=== PATIENT | male | born 1990 | race Caucasian/White ===

== ENCOUNTER → 2016-12-17 | Outpatient (CLI) | payer BC | END | disposition home or self-care (01) | LOC: MW.CHIM 09:00 | CPT/HCPCS: 93270 ==

== ENCOUNTER → 2017-02-05 | Outpatient (CLI) | payer BC | END | disposition home or self-care (01) | LOC: MW.NPFI 18:09 | PROVIDERS: ATTEND Nurse Practitioner | DX: D75.1 Secondary polycythemia (principal) | CPT/HCPCS: 85025 ==

== ENCOUNTER 2017-04-19 22:51 | Observation (INO) | payer BC, OTHER ==
[2017-04-19] MEDS ORDERED: Sodium Chloride 0.9% 1,000 ML IV ONE (23:21)
--- NOTE | 2017-04-19 23:23 | EDM.PDOC ---
ED HPI GENERAL MEDICAL PROBLEM - General Chief Complaint: Abdominal Pain Stated Complaint: LOWER ABDOMINAL PAIN Time Seen by Provider: 04/19/17 23:19 - History of Present Illness INITIAL COMMENTS - FREE TEXT/NARRATIVE: HISTORY AND PHYSICAL: History of present illness: Patient is 26-year-old male with her abdominal pain 1-2 days this is right side is poorly localizesassociated vomiting diarrhea urinary symptoms fever chills or other complaints he denies trauma Review of systems: As per history of present illness and below otherwise all systems reviewed and negative. Past medical history: As per history of present illness and as reviewed below otherwise noncontributory. Surgical history: As per history of present illness and as reviewed below otherwise noncontributory. Social history: No reported history of drug or alcohol abuse. Family history: As per history of present illness and as reviewed below otherwise noncontributory. Physical exam: HEENT: Atraumatic, normocephalic, pupils reactive, negative for conjunctival pallor or scleral icterus, mucous membranes moist, throat clear, neck supple, nontender, trachea midline. Lungs: Clear to auscultation, breath sounds equal bilaterally, chest nontender. Heart: S1S2, regular, negative for clicks, rubs, or JVD. Abdomen: Soft, nondistended, mild right-sided tenderness nonlocalized no rebound no guarding. Negative for masses or hepatosplenomegaly. Negative for costovertebral tenderness. Pelvis: Stable nontender. Genitourinary: Deferred. Rectal: Deferred. Extremities: Atraumatic, negative for cords or calf pain. Neurovascular unremarkable. Neuro: Awake, alert, oriented. Cranial nerves II through XII unremarkable. Cerebellum unremarkable. Motor and sensory unremarkable throughout. Exam nonfocal. Diagnostics: CBC CMP lipase UA CT of abdomen/pelvis Therapeutics: Normal saline 1 L bolus Impression: #1 abdominal pain Definitive disposition and diagnosis as appropriate pending reevaluation and review of above. abdomen Pain Score (Numeric/FACES): 6 - Related Data Allergies Allergy/AdvReac Type Severity Reaction Status Date / Time No Known Allergies Allergy Verified 04/19/17 22:55 Home Meds: Home Meds . [No Known Home Meds] 04/19/17 [History] Past Medical History - Past Health History Medical/Surgical History: Denies Medical/Surgical History HEENT History: Reports: None Musculoskeletal History: Reports: Back Pain, Chronic Psychiatric History: Reports: ADD - Infectious Disease History Infectious Disease History: Reports: Chicken Pox Other Infectious Disease History: childhood - Past Surgical History HEENT Surgical History: Reports: Tonsillectomy Social & Family History - Family History Family Medical History: Noncontributory Cardiac: Reports: Hypertension, Other (See Below) Other Cardiac Family History: heart disease Neurological: Reports: CVA Oncologic: Reports: Skin, Other (See Below) Other Oncologic Family History: sqaumous cell carcinoma - Tobacco Use Smoking Status *Q: Never Smoker Years of Tobacco use: 5 Packs/Tins Daily: 1 - Caffeine Use Caffeine Use: Reports: Coffee, Energy Drinks Other Caffeine Use: 1 daily - Recreational Drug Use Recreational Drug Use: No Drug Use in Last 12 Months: No ED ROS GENERAL - Review of Systems Review Of Systems: ROS reveals no pertinent complaints other than HPI. ED EXAM, GENERAL - Physical Exam Exam: See Below (See dictation) Course - Vital Signs Last Recorded V/S: Last Vital Signs Temp 36.7 C 04/20/17 04:00 Pulse 67 04/20/17 04:00 Resp 14 04/20/17 04:00 BP 110/54 L 04/20/17 04:00 Pulse Ox 97 04/20/17 04:00 - Orders/Labs/Meds Orders: Active Orders 24 hr Category Date Time Status Abdomen Pelvis wo Cont [CT] Stat Exams 04/19/17 23:21 Taken Piperacillin/Tazobactam [Piperacil-Tazobact] 3.375 gm Med 04/20/17 01:15 Active Sodium Chloride 0.9% [Normal Saline] 50 ml IV Q8H Medication Orders Hydromorphone HCl (Dilaudid) 0.5 mg IVPUSH Q1H PRN PRN Reason: Pain Last Admin: 04/20/17 04:28 Dose: 0.5 mg Admin: 04/20/17 02:42 Dose: 0.5 mg Piperacillin Sod/Tazobactam (Sod 3.375 gm/ Sodium Chloride) 50 mls @ 100 mls/ hr IV Q8H [facility] Last Admin: 04/20/17 01:27 Dose: 100 mls/hr Lactated Ringer's (Ringers, Lactated) 1,000 mls @ 125 mls/hr IV ASDIRECTED [facility] Last Admin: 04/20/17 02:35 Dose: 125 mls/hr Labs: Laboratory Tests 04/19/17 04/19/17 04/19/17 Range/Units 23:25 23:49 23:49 WBC 10.66 (4.0-11.0) K/uL RBC 4.96 (4.50-5.90) M/uL Hgb 15.4 (13.0-17.0) g/dL Hct 44.1 (38.0-50.0) % MCV 88.9 (80.0-98.0) fL MCH 31.0 (27.0-32.0) pg MCHC 34.9 (31.0-37.0) g/dL RDW Std Deviation 42.0 (28.0-62.0) fl RDW Coeff of Vikash 13 (11.0-15.0) % Plt Count 161 (150-400) K/uL MPV 10.50 (7.40-12.00) fL Neut % (Auto) 62.5 (48.0-80.0) % Lymph % (Auto) 26.8 (16.0-40.0) % [place] % (Auto) 8.1 (0.0-15.0) % Eos % (Auto) 2.2 (0.0-7.0) % Baso % (Auto) 0.4 (0.0-1.5) % Neut # (Auto) 6.7 H (1.4-5.7) K/uL Lymph # (Auto) 2.9 H (0.6-2.4) K/uL [place] # (Auto) 0.9 H (0.0-0.8) K/uL Eos # (Auto) 0.2 (0.0-0.7) K/uL Baso # (Auto) 0.0 (0.0-0.1) K/uL Nucleated RBC % 0.0 /100WBC Nucleated RBCs # 0 K/uL Sodium 142 (136-146) mmol/L Potassium 3.6 (3.5-5.1) mmol/L Chloride 109 (98-110) mmol/L Carbon Dioxide 21 (21-31) mmol/L BUN 22 (6.0-23.0) mg/dL Creatinine 1.0 (0.6-1.5) mg/dL Est Cr Clr Drug Dosing 133.79 mL/min Estimated GFR (MDRD) > 60.0 ml/min Glucose 105 (60-110) mg/dL Calcium 9.4 (8.8-10.8) mg/dL Total Bilirubin 0.8 (0.1-1.5) mg/dL AST 24 (5-40) IU/L ALT 33 (8-54) IU/L Alkaline Phosphatase 99 (40-150) Total Protein 7.3 (6.0-8.0) g/dL Albumin 4.4 (3.5-5.0) g/dL Globulin 2.9 (2.0-3.5) g/dL Albumin/Globulin Ratio 1.5 (1.3-2.8) Lipase 22 (7-80) U/L Urine Color YELLOW Urine Appearance CLEAR Urine pH 5.5 (5.0-8.0) Ur Specific [place] >= 1.030 (1.001-1.035) Urine Protein NEGATIVE (NEGATIVE) mg/dL Urine Glucose (UA) NEGATIVE (NEGATIVE) mg/dL Urine Ketones NEGATIVE (NEGATIVE) mg/dL Urine Occult Blood SMALL H (NEGATIVE) Urine Nitrite NEGATIVE (NEGATIVE) Urine Bilirubin NEGATIVE (NEGATIVE) Urine Urobilinogen 0.2 (<2.0) EU/dL Ur Leukocyte Esterase NEGATIVE (NEGATIVE) Urine RBC 0-3 (0-2/HPF) Urine WBC 0-1 (0-5/HPF) Ur Epithelial Cells RARE (NONE-FEW) Urine Bacteria FEW (NEGATIVE) Urine Mucus LIGHT (NONE-MOD) Meds: Medications Generic Name Dose Route Start Last Admin Trade Name Freq PRN Reason Stop Dose Admin Hydromorphone HCl 0.5 mg 04/20/17 01:36 04/20/17 04:28 Dilaudid IVPUSH 0.5 mg Q1H PRN Administration Pain Piperacillin Sod/Tazobactam 50 mls @ 100 mls/hr 04/20/17 01:15 04/20/17 01:27 Sod 3.375 gm/ Sodium Chloride IV 100 mls/hr Q8H [facility] Administration Lactated Ringer's 1,000 mls @ 125 mls/hr 04/20/17 01:45 04/20/17 02:35 Ringers, Lactated IV 125 mls/hr ASDIRECTED [facility] Administration Discontinued Medications Generic Name Dose Route Start Last Admin Trade Name Freq PRN Reason Stop Dose Admin Hydromorphone HCl 1 mg 04/20/17 01:09 04/20/17 01:27 Dilaudid IVPUSH 04/20/17 01:10 1 mg ONETIME ONE Administration Sodium Chloride 1,000 mls @ 999 mls/hr 04/19/17 23:21 04/19/17 23:56 Normal Saline IV 04/20/17 00:21 999 mls/hr STAT ONE Administration Sodium Chloride 1,000 mls @ 999 mls/hr 04/20/17 01:09 04/20/17 01:27 Normal Saline IV 04/20/17 02:09 999 mls/hr STAT ONE Administration Ketorolac Tromethamine 15 mg 04/19/17 23:59 04/20/17 00:03 Toradol IVPUSH 04/20/17 00:00 15 mg NOW STA Administration Departure - Departure Time of Disposition: 23:55 Disposition: Admitted As Inpatient 66 Condition: Good Clinical Impression: Abdominal pain - Discharge Information - My Orders Last 24 Hours: My Active Orders 04/19/17 23:21 Abdomen Pelvis wo Cont [CT] Stat 04/20/17 01:15 Piperacillin/Tazobactam [Piperacil-Tazobact] 3.375 gm Sodium Chloride 0.9% [ Normal Saline] 50 ml IV Q8H - Assessment/Plan Last 24 Hours: My Active Orders 04/19/17 23:21 Abdomen Pelvis wo Cont [CT] Stat 04/20/17 01:15 Piperacillin/Tazobactam [Piperacil-Tazobact] 3.375 gm Sodium Chloride 0.9% [ Normal Saline] 50 ml IV Q8H
[2017-04-19] MEDS ORDERED: Ketorolac 15 MG/ML SDV IVPUSH STA (23:59)
[2017-04-20 00:59] LABS: CHLORIDE,CL 109 mmol/L (98-110); SODIUM,NA 142 mmol/L (136-146)
[2017-04-20] MEDS ORDERED: HYDROmorphone 2 MG/ML Syringe IVPUSH ONE (01:09)
[2017-04-20] MEDS ORDERED: Sodium Chloride 0.9% 1,000 ML IV ONE (01:09)
[2017-04-20] MEDS: Piperacillin/Tazobactam 3.375 GM in Sodium Chloride 0.9% 50 ML IV SCH ×2 (01:27→10:11)
[2017-04-20] MEDS: Lactated Ringers 1,000 ML IV SCH ×2 (02:35→16:21)
[2017-04-20] MEDS: HYDROmorphone 1 MG/ML Syringe IVPUSH PRN ×4 (02:42→16:17)
--- NOTE | 2017-04-20 07:46 | PCM.HP ---
H&P History of Present Illness - General Date of Service: 04/20/17 Admit Problem/Dx: Admission Diagnosis/Problem Admission Diagnosis/Problem Appendicitis Source of Information: Patient History Limitations: Reports: No Limitations - History of Present Illness Initial Comments - Free Text/Narative: Patient is a 26 yo male who developed abdominal discomfort 2 days ago. he thought it was hunger pains, but by the end of the day he had no appetite. Yesterday the pain migrated to his RLQ and he had associated symptoms of nausea. He denies fevers, chills, vomiting, or urinary symptoms. His last BM was yesterday. He has a history of atrial fibrillation last November. He was drinking and using smokeless tobacco and caffinated products at the time. He was very stressed at work and think that this contributed to things. He quit drinking and using chew and has had no symptoms since. He also had a negative cardiac workup. abdomen Pain Score (Numeric/FACES): 6 - Related Data Allergies/Adverse Reactions: Allergies Allergy/AdvReac Type Severity Reaction Status Date / Time No Known Allergies Allergy Verified 04/19/17 22:55 Home Medications: Home Meds . [No Known Home Meds] 04/19/17 [History] Past Medical History - Past Health History Medical/Surgical History: Denies Medical/Surgical History HEENT History: Reports: None Other HEENT History: tonsillitis Cardiovascular History: Reports: Afib Musculoskeletal History: Reports: Back Pain, Chronic Psychiatric History: Reports: ADD - Infectious Disease History Infectious Disease History: Reports: Chicken Pox Other Infectious Disease History: childhood - Past Surgical History HEENT Surgical History: Reports: Tonsillectomy Social & Family History - Family History Family Medical History: Noncontributory Cardiac: Reports: Hypertension, Other (See Below) Other Cardiac Family History: heart disease OBGYN: Reports: Neurological: Reports: CVA Oncologic: Reports: Skin, Other (See Below) Other Oncologic Family History: sqaumous cell carcinoma - Tobacco Use Smoking Status *Q: Never Smoker Years of Tobacco use: 5 Packs/Tins Daily: 1 Used Tobacco, but Quit: Yes Month Tobacco Last Used: Nov, 2016 Second Hand Smoke Exposure: Yes - Caffeine Use Caffeine Use: Reports: Coffee, Energy Drinks Other Caffeine Use: 1 daily Caffeine Use Comment: drinks coffee daily - Alcohol Use Date of Last Drink: 04/17/17 Time of Last Drink: 22:00 - Recreational Drug Use Recreational Drug Use: No Drug Use in Last 12 Months: No Recreational Drug Use Frequency: Not Used In Over 1 Year H&P Review of Systems - Review of Systems: Review Of Systems: ROS reveals no pertinent complaints other than HPI. Exam - Exam Exam: See Below - Vital Signs Vital Signs: Last Vital Signs Temp 36.7 C 04/20/17 04:00 Pulse 67 04/20/17 04:00 Resp 14 04/20/17 04:00 BP 110/54 L 04/20/17 04:00 Pulse Ox 97 04/20/17 04:00 Weight: 120 kg - Exam General: Alert, Oriented HEENT: Conjunctiva Clear, EACs Clear, EOMI, Mucosa Moist & [place], Nares Patent, Normal Nasal Septum, Posterior Pharynx Clear, Pupils Equal, Pupils Reactive Neck: Supple, Trachea Midline Lungs: Clear to Auscultation, Normal Respiratory Effort Cardiovascular: Regular Rate, Regular Rhythm Abdomen: Soft, McBurney's Sign Rectal (Males) Exam: Normal Exam Extremities: Normal Inspection Skin: Warm, Dry, Intact - Patient Data Result Diagrams: 04/19/17 23:49 04/19/17 23:49 *Q Meaningful Use (ADM) - VTE *Q VTE Criteria *Q: - Stroke *Q Stroke Criteria *Q: - AMI *Q AMI Criteria *Q: - Problem List (1) Appendicitis SNOMED Code(s): 25133069 ICD Code: K37 - UNSPECIFIED APPENDICITIS Status: Acute Current Visit: Yes Problem List Initiated/Reviewed/Updated: Yes Orders Last 24hrs: Active Orders 24 hr Category Date Time Status Admission Status [Patient Status] [ADT] Stat ADT 04/20/17 01:21 Active Nothing per Oral Now Diet [DIET] Diet 04/20/17 Breakfast Active HYDROmorphone [Dilaudid] Med 04/20/17 01:36 Active 0.5 mg IVPUSH Q1H PRN Lactated Ringers [Ringers, Lactated] 1,000 ml Med 04/20/17 01:45 Active IV ASDIRECTED Medication Orders Hydromorphone HCl (Dilaudid) 0.5 mg IVPUSH Q1H PRN PRN Reason: Pain Last Admin: 04/20/17 04:28 Dose: 0.5 mg Admin: 04/20/17 02:42 Dose: 0.5 mg Piperacillin Sod/Tazobactam (Sod 3.375 gm/ Sodium Chloride) 50 mls @ 100 mls/ hr IV Q8H [facility] Last Admin: 04/20/17 01:27 Dose: 100 mls/hr Lactated Ringer's (Ringers, Lactated) 1,000 mls @ 125 mls/hr IV ASDIRECTED [facility] Last Admin: 04/20/17 02:35 Dose: 125 mls/hr Assessment/Plan Comment:: Patient CT abdomen/pelvis shows acute appendicitis. The patient and I discussed the pathophysiology of acute appendicitis. The treatment for this is surgery. We discussed the laparoscopic and open approach. If I cannot perform this laparoscopically I will convert to open. We discussed the risks including bleeding infection or damage to surrounding structures. If his appendix has perforated he will need to stay for IV antibiotic therapy. The patient verbalized understanding and wishes to proceed.
[2017-04-20] MEDS ORDERED: Succinylcholine/Normal Saline 200 MG/10 ML Syringe ONE (08:41)
[2017-04-20] MEDS ORDERED: Midazolam 1 MG/ML 2 ML SDV ONE (08:41)
[2017-04-20] MEDS ORDERED: fentaNYL 100 MCG/2 ML SDV ONE ×2 (08:41→10:07)
[2017-04-20] MEDS ORDERED: Lidocaine 2% 5 ML SDV ONE (08:41)
[2017-04-20] MEDS ORDERED: Propofol 200 MG/20 ML SDV ONE (08:41)
[2017-04-20] MEDS ORDERED: Bupivacaine 0.5% 10 ML SDV ONE (08:46)
[2017-04-20] MEDS ORDERED: ePHEDrine 50 MG/ML SDV ONE (09:32)
[2017-04-20] MEDS ORDERED: Neostigmine Methylsulfate 1 MG/ML 5 ML Syringe ONE (09:41)
[2017-04-20] MEDS ORDERED: fentaNYL 100 MCG/2 ML SDV IVPUSH PRN (09:53)
--- NOTE | 2017-04-20 10:02 | PCM.PREANE ---
Preanesthetic Assessment - Procedure Proposed Procedure: Lap appendectomy - Anesthesia/Transfusion/Family Hx Anesthesia History: Prior Anesthesia Without Reaction Family History of Anesthesia Reaction: No Transfusion History: No Prior Transfusion(s) - Review of Systems General: No Symptoms Pulmonary: No Symptoms Cardiovascular: No Symptoms Gastrointestinal: Abdominal pain, Decreased appetite, Nausea Neurological: No Symptoms Other: Reports: None - Physical Assessment NPO Status Date: 04/19/17 NPO Status Time: 23:45 O2 Sat by Pulse Oximetry: 93 Respiratory Rate: 22 Vital Signs: Last Vital Signs Temp 36.5 C 04/20/17 08:00 Pulse 61 04/20/17 08:00 Resp 22 H 04/20/17 08:00 BP 110/60 04/20/17 08:00 Pulse Ox 93 L 04/20/17 08:00 Height: 1.91 m Weight: 120 kg ASA Class: 2E Mental Status: Alert & Oriented x3 Airway Class: Mallampati = 2 Dentition: Reports: Normal Dentition Thyro-Mental Finger Breadths: 3 Mouth Opening Finger Breadths: 3 ROM/Head Extension: Full Lungs: Clear to auscultation, Normal respiratory effort Cardiovascular: Regular Rate, Regular Rhythm - Lab Values: Laboratory Last Values WBC 10.66 K/uL (4.0-11.0) 04/19/17 23:49 RBC 4.96 M/uL (4.50-5.90) 04/19/17 23:49 Hgb 15.4 g/dL (13.0-17.0) 04/19/17 23:49 Hct 44.1 % (38.0-50.0) 04/19/17 23:49 MCV 88.9 fL (80.0-98.0) 04/19/17 23:49 MCH 31.0 pg (27.0-32.0) 04/19/17 23:49 MCHC 34.9 g/dL (31.0-37.0) 04/19/17 23:49 RDW Std Deviation 42.0 fl (28.0-62.0) 04/19/17 23:49 RDW Coeff of Vikash 13 % (11.0-15.0) 04/19/17 23:49 Plt Count 161 K/uL (150-400) 04/19/17 23:49 MPV 10.50 fL (7.40-12.00) 04/19/17 23:49 Neut % (Auto) 62.5 % (48.0-80.0) 04/19/17 23:49 Lymph % (Auto) 26.8 % (16.0-40.0) 04/19/17 23:49 [place] % (Auto) 8.1 % (0.0-15.0) 04/19/17 23:49 Eos % (Auto) 2.2 % (0.0-7.0) 04/19/17 23:49 Baso % (Auto) 0.4 % (0.0-1.5) 04/19/17 23:49 Neut # (Auto) 6.7 K/uL (1.4-5.7) H 04/19/17 23:49 Lymph # (Auto) 2.9 K/uL (0.6-2.4) H 04/19/17 23:49 [place] # (Auto) 0.9 K/uL (0.0-0.8) H 04/19/17 23:49 Eos # (Auto) 0.2 K/uL (0.0-0.7) 04/19/17 23:49 Baso # (Auto) 0.0 K/uL (0.0-0.1) 04/19/17 23:49 Nucleated RBC % 0.0 /100WBC 04/19/17 23:49 Nucleated RBCs # 0 K/uL 04/19/17 23:49 Sodium 142 mmol/L (136-146) 04/19/17 23:49 Potassium 3.6 mmol/L (3.5-5.1) 04/19/17 23:49 Chloride 109 mmol/L (98-110) 04/19/17 23:49 Carbon Dioxide 21 mmol/L (21-31) 04/19/17 23:49 BUN 22 mg/dL (6.0-23.0) 04/19/17 23:49 Creatinine 1.0 mg/dL (0.6-1.5) 04/19/17 23:49 Est Cr Clr Drug Dosing 133.79 mL/min 04/19/17 23:49 Estimated GFR (MDRD) > 60.0 ml/min 04/19/17 23:49 Glucose 105 mg/dL (60-110) 04/19/17 23:49 Calcium 9.4 mg/dL (8.8-10.8) 04/19/17 23:49 Total Bilirubin 0.8 mg/dL (0.1-1.5) 04/19/17 23:49 AST 24 IU/L (5-40) 04/19/17 23:49 ALT 33 IU/L (8-54) 04/19/17 23:49 Alkaline Phosphatase 99 (40-150) 04/19/17 23:49 Total Protein 7.3 g/dL (6.0-8.0) 04/19/17 23:49 Albumin 4.4 g/dL (3.5-5.0) 04/19/17 23:49 Globulin 2.9 g/dL (2.0-3.5) 04/19/17 23:49 Albumin/Globulin Ratio 1.5 (1.3-2.8) 04/19/17 23:49 Lipase 22 U/L (7-80) 04/19/17 23:49 Urine Color YELLOW 04/19/17 23:25 Urine Appearance CLEAR 04/19/17 23:25 Urine pH 5.5 (5.0-8.0) 04/19/17 23:25 Ur Specific [place] >= 1.030 (1.001-1.035) 04/19/17 23:25 Urine Protein NEGATIVE mg/dL (NEGATIVE) 04/19/17 23:25 Urine Glucose (UA) NEGATIVE mg/dL (NEGATIVE) 04/19/17 23:25 Urine Ketones NEGATIVE mg/dL (NEGATIVE) 04/19/17 23:25 Urine Occult Blood SMALL (NEGATIVE) H 04/19/17 23:25 Urine Nitrite NEGATIVE (NEGATIVE) 04/19/17 23:25 Urine Bilirubin NEGATIVE (NEGATIVE) 04/19/17 23:25 Urine Urobilinogen 0.2 EU/dL (<2.0) 04/19/17 23:25 Ur Leukocyte Esterase NEGATIVE (NEGATIVE) 04/19/17 23:25 Urine RBC 0-3 (0-2/HPF) 04/19/17 23:25 Urine WBC 0-1 (0-5/HPF) 04/19/17 23:25 Ur Epithelial Cells RARE (NONE-FEW) 04/19/17 23:25 Urine Bacteria FEW (NEGATIVE) 04/19/17 23:25 Urine Mucus LIGHT (NONE-MOD) 04/19/17 23:25 - Allergies Allergies/Adverse Reactions: Allergies Allergy/AdvReac Type Severity Reaction Status Date / Time No Known Allergies Allergy Verified 04/19/17 22:55 - Acknowledgements Anesthesia Type Planned: General Anesthesia Pt an Appropriate Candidate for the Planned Anesthesia: Yes Alternatives and Risks of Anesthesia Discussed w Pt/Guardian: Yes Pt/Guardian Understands and Agrees with Anesthesia Plan: Yes PreAnesthesia Questionnaire - Past Health History Medical/Surgical History: Denies Medical/Surgical History HEENT History: Reports: None Other HEENT History: tonsillitis Cardiovascular History: Reports: Afib Other Cardiovascular History: Pt had history of a fib earlier this year. 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 Placed on xarelto and metoprolol. Had follow up visit and meds dc/d. States suspicion of alcohol/caffeine or stress triggered afib. Has been asymptomatic. Does have family history of early age cardiac disease. Risks of surgery and cardiac response discussed. Pt and advised to seek immediate medical attention in future if any symptoms occur. Pt and agree and wish to proceed. Musculoskeletal History: Reports: Back Pain, Chronic Psychiatric History: Reports: ADD - Infectious Disease History Infectious Disease History: Reports: Chicken Pox Other Infectious Disease History: childhood - Past Surgical History HEENT Surgical History: Reports: Tonsillectomy - SUBSTANCE USE Smoking Status *Q: Never Smoker Tobacco Use Within Last Twelve Months: Snuff/Dip Second Hand Smoke Exposure: Yes Date of Last Drink: 04/17/17 Time of Last Drink: 22:00 Recreational Drug Use History: No Recreational Drug Type: Reports: Cocaine (Remote history of cocaine use. Used "quite a bit" but has not used for over 5 years.) - HOME MEDS Home Medications: Home Meds . [No Known Home Meds] 04/19/17 [History] - CURRENT (IN HOUSE) MEDS Current Meds: Current Medications Fentanyl (Sublimaze) 50 - 100 mcg IVPUSH Q5M PRN PRN Reason: Pain Stop: 04/20/17 11:54 Hydromorphone HCl (Dilaudid) 0.5 mg IVPUSH Q1H PRN PRN Reason: Pain Last Admin: 04/20/17 08:10 Dose: 0.5 mg Piperacillin Sod/Tazobactam (Sod 3.375 gm/ Sodium Chloride) 50 mls @ 100 mls/ hr IV Q8H [facility] Last Admin: 04/20/17 01:27 Dose: 100 mls/hr Lactated Ringer's (Ringers, Lactated) 1,000 mls @ 125 mls/hr IV ASDIRECTED [facility] Last Admin: 04/20/17 02:35 Dose: 125 mls/hr Discontinued Medications Bupivacaine HCl (Sensorcaine-Mpf 0.5%) Confirm Administered Dose 20 ml .ROUTE .STK-MED ONE Stop: 04/20/17 08:47 Ephedrine Sulfate (Ephedrine Sulfate) Confirm Administered Dose 50 mg .ROUTE .STK-MED ONE Stop: 04/20/17 09:33 Fentanyl (Sublimaze) Confirm Administered Dose 100 mcg .ROUTE .STK-MED ONE Stop: 04/20/17 08:42 Glycopyrrolate () Confirm Administered Dose 1 mg .ROUTE .STK-MED ONE Stop: 04/20/17 09:42 Hydromorphone HCl (Dilaudid) 1 mg IVPUSH ONETIME ONE Stop: 04/20/17 01:10 Last Admin: 04/20/17 01:27 Dose: 1 mg Sodium Chloride (Normal Saline) 1,000 mls @ 999 mls/hr IV STAT ONE Stop: 04/20/17 00:21 Last Admin: 04/19/17 23:56 Dose: 999 mls/hr Sodium Chloride (Normal Saline) 1,000 mls @ 999 mls/hr IV STAT ONE Stop: 04/20/17 02:09 Last Admin: 04/20/17 01:27 Dose: 999 mls/hr Ketorolac Tromethamine (Toradol) 15 mg IVPUSH NOW STA Stop: 04/20/17 00:00 Last Admin: 04/20/17 00:03 Dose: 15 mg Lidocaine (Xylocaine-Mpf 2%) Confirm Administered Dose 5 ml .ROUTE .STK-MED ONE Stop: 04/20/17 08:42 Midazolam HCl (Versed 1 Mg/Ml) Confirm Administered Dose 2 mg .ROUTE .STK-MED ONE Stop: 04/20/17 08:42 Neostigmine Methylsulfate (Neostigmine) Confirm Administered Dose 5 mg .ROUTE .STK-MED ONE Stop: 04/20/17 09:42 Propofol (Diprivan 20 Ml) Confirm Administered Dose 200 mg .ROUTE .STK-MED ONE Stop: 04/20/17 08:42 Rocuronium [place] (Zemuron) Confirm Administered Dose 50 mg .ROUTE .STK-MED ONE Stop: 04/20/17 08:42 Rocuronium [place] (Zemuron) Confirm Administered Dose 50 mg .ROUTE .STK-MED ONE Stop: 04/20/17 09:50 Succinylcholine Chloride (Succinylcholine In Ns Pf) Confirm Administered Dose 200 mg .ROUTE .STK-MED ONE Stop: 04/20/17 08:42
[2017-04-20] MEDS ORDERED: Ondansetron 4 MG/2 ML SDV ONE (10:19)
[2017-04-20] MEDS ORDERED: Ketorolac 30 MG/ML SDV ONE (10:19)
[2017-04-20] MEDS ORDERED: Ondansetron 4 MG/2 ML SDV IVPUSH PRN (10:31)
--- NOTE | 2017-04-20 10:43 | PCM.OPNOTE ---
- General Post-Op/Procedure Note Date of Surgery/Procedure: 04/20/17 Operative Procedure(s): Laparoscopic appendectomy Findings: Non-perforated appendicitis Pre Op Diagnosis: Appendicitis Post-Op Diagnosis: same Anesthesia Technique: General ET tube Primary Surgeon: Neena Arechiga Fluid Replacement, Intraop: 1,500 Output, Urine Amount: 20 EBL in mLs: 10 Condition: Fair Free Text/Narrative:: Intake & Output 04/19/17 04/20/17 04/20/17 22:59 06:59 14:59 Intake Total 1050 Output Total 400 Balance 650
--- NOTE | 2017-04-20 11:00 | PCM.POSTAN ---
POST ANESTHESIA ASSESSMENT - MENTAL STATUS Mental Status: alert, oriented - RESPIRATORY Respiratory Status: respiratory rate WNL, airway patent, O2 saturation stable - CARDIOVASCULAR CV Status: pulse rate WNL, blood pressure stable - GASTROINTESTINAL GI Status: no symptoms - POST OP HYDRATION Hydration Status: adequate & stable
--- NOTE | 2017-04-20 11:44 | OR ---
SURGEON: BRE SO MD DATE OF PROCEDURE: 04/20/2017 PREOPERATIVE DIAGNOSIS: Acute appendicitis. POSTOPERATIVE DIAGNOSIS: Acute appendicitis. PROCEDURE PERFORMED: Laparoscopic appendectomy. ANESTHESIA: General endotracheal anesthesia. FLUIDS: 1500 mL crystalloid. URINE OUTPUT: 20 mL. ESTIMATED BLOOD LOSS: 10 mL. FINDINGS: Acutely inflamed nonperforated retrocecal appendix. COMPLICATIONS: None. INDICATIONS: The patient is a 26-year-old male who presents with a 2-day history of increasing right lower quadrant pain. CT showed evidence of an enlarged appendix consistent with appendicitis. We discussed the pathophysiology of appendicitis. I explained that the treatment is appendectomy. We discussed the laparoscopic and open approaches. I told him if I am unable to perform this safely laparoscopically, I would be converting to open. The risks were discussed including bleeding, infection, damage to surrounding structures. The patient verbalized understanding and wishes to proceed. PROCEDURE IN DETAIL: The patient was brought to the OR suite and placed on the operating room table in supine position. A time-out was completed verifying the patient's name, age, date of , allergies, and procedure to be performed. General endotracheal anesthesia was induced. The left arm was tucked to the patient's side and a Jerome catheter placed. The abdomen was prepped and draped in the usual standard fashion. I anesthetized my 1st port site using 0.5% Marcaine plain. A 1 cm incision was made using an 11 blade, two fingerbreadths below the left subcostal margin along the midclavicular line. Using a 5 mm optical trocar, I then gained access into the abdomen in the left upper quadrant. All layers of the abdominal wall were visualized while doing this. Upon entering the abdomen, we noted there to be an omental adhesion at my trocar site. Great care was taken to inspect the area underneath my trocar site but no damage was noted to any of the structures below. A 5 mm 30-degree scope was inserted into the abdomen and no other intraabdominal adhesions were noted. A 5 mm trocar was placed under direct visualization along the left lateral flank just lateral to the umbilicus. A 12 mm port was placed under direct visualization in the left lower quadrant. The patient was placed into Trendelenburg position and airplaned slightly to the left. Using atraumatic graspers, I located the ascending colon, followed the tenia down to the base of the cecum. The appendix was retrocecal and I rolled the colon medially in order to access the appendiceal tip. The appendiceal tip was grasped with an atraumatic grasper and lifted cephalad. The appendix itself was slightly tortuous but appeared grossly inflamed. It was not perforated. The retrocecal attachments were taken down with hook cautery and laparoscopic scissors. This allowed me to mobilize the appendix enough to visualize the appendiceal mesentery and the base of the appendix. Using a [place] dissector, I made a window at the base of the appendix. An endoscopic stapler was then brought into the field. I stapled across the appendiceal mesentery with a 45 mm white load of joaquin. I then came across the base of the appendix with a 45 mm blue load of joaquin. The appendix was freed from its attachments and placed in the endoscopic bag and removed through the 12 mm port site. I then reinspected the area and found to be hemostatic. The abdomen was copiously irrigated until the fluid ran clear. I then closed the 12 mm port site with a Baldev-Eleonora closure device and 0 Vicryl suture. The abdomen was allowed to desufflate and I removed the other trocars under direct visualization. The 12 mm port site was closed with interrupted 3-0 Vicryl in the subcutaneous fat layer and a running 4- 0 Monocryl suture in the subcuticular space. The 5 mm trocar sites were closed with interrupted 4-0 Monocryl sutures. Steri-Strips and sterile dressings were applied. The patient tolerated the procedure well and was taken to the PACU in stable condition. NINI DE GUZMAN /[id number]
[2017-04-20] MEDS: Acetaminophen/oxyCODONE 325-5 MG Tab PO PRN ×3 (13:26→23:57)
--- NOTE | 2017-04-20 13:38 | PCM48HPAN ---
Post Anesthesia Note - EVALUATION WITHIN 48HRS OF ANESTHETIC Vital Signs in Normal Range: Yes Patient Participated in Evaluation: Yes Respiratory Function Stable: Yes Airway Patent: Yes Cardiovascular Function Stable: Yes Hydration Status Stable: Yes Pain Control Satisfactory: Yes Nausea and Vomiting Control Satisfactory: Yes Mental Status Recovered: Yes
[2017-04-20] MEDS: Polyethylene Glycol 3350 Powder 17 GM Packet PO SCH (14:46)
[2017-04-20 22:59] LABS: CHLORIDE,CL 107 mmol/L (98-110); SODIUM,NA 139 mmol/L (136-146)
[2017-04-21] MEDS: Lactated Ringers 1,000 ML IV SCH (00:30)
[2017-04-21] MEDS: Acetaminophen/oxyCODONE 325-5 MG Tab PO PRN (04:37)
[2017-04-21] MEDS ORDERED: HYDROmorphone 2 MG Tab PO PRN (08:11)
[2017-04-21 08:22] VITALS: BP 134/73
[2017-04-21] MEDS: Polyethylene Glycol 3350 Powder 17 GM Packet PO SCH (08:51)
--- NOTE | 2017-04-21 08:55 | PCM.DCSUM1 ---
Discharge Summary - Hospital Course Free Text/Narrative:: Patient presented to the hospital with 2 days of increasing abdominal pain. It settled in the RLQ. Ct of the abdomen pelvis showed acute appendicitis. He was taken to the OR and underwent a laparoscopic appendectomy. The appendix was not perforated. He did well post operatively. Since he had a history of atrial fibrillation, i monitored him overnight on telemetry. He had one episode of chest tightness. CXR and EKG were normal. His labs were within normal limits. He felt that percocet did not give him as good of pain relief as dilaudid. He was given po dilaudid. His vitals are stable and he is doing well. Dressings over his incisions were clean dry and intact. He was cleared for discharge. - Discharge Data Discharge Date: 04/21/17 Discharge Disposition: Home, Self-Care 01 Condition: Fair - Discharge Diagnosis/Problem(s) (1) Appendicitis SNOMED Code(s): 65159028 ICD Code: K37 - UNSPECIFIED APPENDICITIS Status: Acute Current Visit: Yes Qualifiers: Appendicitis type: acute appendicitis - Patient Summary/Data Operative Procedure(s) Performed: Laparoscopic appendectomy - Patient Instructions Diet: Regular Diet as Tolerated Activity: No Lifting Over 20 Pounds (for four weeks), Rest and Relax Today Driving: Do Not Drive Driving, Other: For one week or while on narcotics Showering/Bathing: No Showering (until tomorrow ), No Tub Bathing/Swimming (for two weeks ) Wound/Incision Care: Keep Operative Site/Wound Site Clean and Dry Notify Provider of: Fever, Increased Pain, Nausea and/or Vomiting - Discharge Plan Prescriptions/Med Rec: Polyethylene Glycol 3350 [MiraLAX] 17 gm PO DAILY #14 packet Home Medications: Home Meds Polyethylene Glycol 3350 [MiraLAX] 17 gm PO DAILY #14 packet 04/21/17 [Rx] Patient Handouts: Laparoscopic Appendectomy, Adult, Care After, Acetaminophen; Oxycodone tablets Referrals: Neena Arechiga MD [Physician] - Angle Dickson MD [Primary Care Provider] - - Discharge Summary/Plan Comment DC Time >30 min.: No - General Info Functional Status: Reports: pain controlled, tolerating diet, ambulating, urinating - Review of Systems General: Reports: No Symptoms Cardiovascular: Reports: No Symptoms Gastrointestinal: Reports: No symptoms Genitourinary: Reports: no symptoms Musculoskeletal: Reports: no symptoms - Patient Data Vitals - Most Recent: Last Vital Signs Temp 36.4 C 04/21/17 08:00 Pulse 68 04/21/17 08:00 Resp 22 H 04/21/17 08:00 BP 134/73 04/21/17 08:00 Pulse Ox 96 04/21/17 08:00 Weight - Most Recent: 120 kg I&O - Last 24 hours: Intake & Output 04/20/17 04/21/17 04/21/17 22:59 06:59 14:59 Intake Total 1150 1349 Output Total 150 1180 Balance 1000 169 Lab Results - Last 24 hrs: Laboratory Results - last 24 hr 04/20/17 04/20/17 04/20/17 Range/Units 22:27 22:27 22:27 WBC 9.43 (4.0-11.0) K/uL RBC 3.98 L (4.50-5.90) M/uL Hgb 12.0 L (13.0-17.0) g/dL Hct 36.3 L (38.0-50.0) % MCV 91.2 (80.0-98.0) fL MCH 30.2 (27.0-32.0) pg MCHC 33.1 (31.0-37.0) g/dL RDW Std Deviation 43.5 (28.0-62.0) fl RDW Coeff of Vikash 13 (11.0-15.0) % Plt Count 129 L (150-400) K/uL MPV 9.80 (7.40-12.00) fL Neut % (Auto) 71.3 (48.0-80.0) % Lymph % (Auto) 19.6 (16.0-40.0) % [place] % (Auto) 6.4 (0.0-15.0) % Eos % (Auto) 2.4 (0.0-7.0) % Baso % (Auto) 0.3 (0.0-1.5) % Neut # (Auto) 6.7 H (1.4-5.7) K/uL Lymph # (Auto) 1.9 (0.6-2.4) K/uL [place] # (Auto) 0.6 (0.0-0.8) K/uL Eos # (Auto) 0.2 (0.0-0.7) K/uL Baso # (Auto) 0.0 (0.0-0.1) K/uL Nucleated RBC % 0.0 /100WBC Nucleated RBCs # 0 K/uL Sodium 139 (136-146) mmol/L Potassium 3.8 (3.5-5.1) mmol/L Chloride 107 (98-110) mmol/L Carbon Dioxide 24 (21-31) mmol/L BUN 15 (6.0-23.0) mg/dL Creatinine 0.8 (0.6-1.5) mg/dL Est Cr Clr Drug Dosing 168.13 mL/min Estimated GFR (MDRD) > 60.0 ml/min Glucose 96 (60-110) mg/dL Calcium 8.1 L (8.8-10.8) mg/dL Troponin I < 0.10 (0.0-0.29) NG/ML Med Orders - Current: Current Medications Hydromorphone HCl (Dilaudid) 4 mg PO Q6H PRN PRN Reason: Abdominal Pain Lactated Ringer's (Ringers, Lactated) 1,000 mls @ 125 mls/hr IV ASDIRECTED [facility] Last Admin: 04/21/17 00:30 Dose: 125 mls/hr Ondansetron HCl (Zofran) 4 mg IVPUSH Q6H PRN PRN Reason: Nausea/Vomiting Polyethylene Glycol (Miralax) 17 gm PO DAILY [facility] Last Admin: 04/20/17 14:46 Dose: 17 gm Discontinued Medications Bupivacaine HCl (Sensorcaine-Mpf 0.5%) Confirm Administered Dose 20 ml .ROUTE .STK-MED ONE Stop: 04/20/17 08:47 Ephedrine Sulfate (Ephedrine Sulfate) Confirm Administered Dose 50 mg .ROUTE .STK-MED ONE Stop: 04/20/17 09:33 Fentanyl (Sublimaze) Confirm Administered Dose 100 mcg .ROUTE .STK-MED ONE Stop: 04/20/17 08:42 Fentanyl (Sublimaze) 50 - 100 mcg IVPUSH Q5M PRN PRN Reason: Pain Stop: 04/20/17 11:54 Fentanyl (Sublimaze) Confirm Administered Dose 100 mcg .ROUTE .STK-MED ONE Stop: 04/20/17 10:08 Glycopyrrolate () Confirm Administered Dose 1 mg .ROUTE .STK-MED ONE Stop: 04/20/17 09:42 Hydromorphone HCl (Dilaudid) 1 mg IVPUSH ONETIME ONE Stop: 04/20/17 01:10 Last Admin: 04/20/17 01:27 Dose: 1 mg Hydromorphone HCl (Dilaudid) 0.5 mg IVPUSH Q1H PRN PRN Reason: Pain Last Admin: 04/20/17 16:17 Dose: 0.5 mg Sodium Chloride (Normal Saline) 1,000 mls @ 999 mls/hr IV STAT ONE Stop: 04/20/17 00:21 Last Admin: 04/19/17 23:56 Dose: 999 mls/hr Piperacillin Sod/Tazobactam (Sod 3.375 gm/ Sodium Chloride) 50 mls @ 100 mls/ hr IV Q8H [facility]OND Last Admin: 04/20/17 10:11 Dose: Not Given Sodium Chloride (Normal Saline) 1,000 mls @ 999 mls/hr IV STAT ONE Stop: 04/20/17 02:09 Last Admin: 04/20/17 01:27 Dose: 999 mls/hr Ketorolac Tromethamine (Toradol) 15 mg IVPUSH NOW STA Stop: 04/20/17 00:00 Last Admin: 04/20/17 00:03 Dose: 15 mg Ketorolac Tromethamine (Toradol) Confirm Administered Dose 60 mg .ROUTE .STK- MED ONE Stop: 04/20/17 10:20 Lidocaine (Xylocaine-Mpf 2%) Confirm Administered Dose 5 ml .ROUTE .STK-MED ONE Stop: 04/20/17 08:42 Midazolam HCl (Versed 1 Mg/Ml) Confirm Administered Dose 2 mg .ROUTE .STK-MED ONE Stop: 04/20/17 08:42 Neostigmine Methylsulfate (Neostigmine) Confirm Administered Dose 5 mg .ROUTE .STK-MED ONE Stop: 04/20/17 09:42 Ondansetron HCl (Zofran) Confirm Administered Dose 4 mg .ROUTE .STK-MED ONE Stop: 04/20/17 10:20 Oxycodone/Acetaminophen (Percocet 325-5 Mg) 2 tab PO Q4H PRN PRN Reason: Pain (moderate 4-6) Last Admin: 04/21/17 04:37 Dose: 2 tab Propofol (Diprivan 20 Ml) Confirm Administered Dose 200 mg .ROUTE .STK-MED ONE Stop: 04/20/17 08:42 Rocuronium [place] (Zemuron) Confirm Administered Dose 50 mg .ROUTE .STK-MED ONE Stop: 04/20/17 08:42 Rocuronium [place] (Zemuron) Confirm Administered Dose 50 mg .ROUTE .STK-MED ONE Stop: 04/20/17 09:50 Succinylcholine Chloride (Succinylcholine In Ns Pf) Confirm Administered Dose 200 mg .ROUTE .STK-MED ONE Stop: 04/20/17 08:42 - Exam General: Reports: alert, oriented Lungs: Reports: Clear to auscultation, Normal respiratory effort Cardiovascular: Reports: Regular Rate, Regular Rhythm Abdomen: Reports: soft, no tenderness, no distension Skin: Reports: warm, intact Wound/Incisions: Reports: healing well, dressing dry and intact Psy/Mental Status: Reports: alert, normal affect, normal mood *Q Meaningful Use (DIS) - VTE *Q VTE Criteria *Q: - Stroke *Q Stroke Criteria *Q: - AMI *Q AMI Criteria *Q:
--- NOTE | 2017-04-21 15:15 | CT ---
EXAM DATE: 04/20/17 PATIENT'S AGE: 26 Patient: ALEX BURKS Facility: [place], [place] Site . Site : 1990 Study: CT Abdomen/Pelvis WO CONT [id number]/4/2017 12:41:44 AM Ordering Physician: Kim Montes Final Report: INDICATION: Flank pain right TECHNIQUE: CT abdomen and pelvis without i.v. contrast. Coronal and sagittal reformats were obtained. COMPARISON: None FINDINGS: Lower chest: Unremarkable. Liver: Unremarkable. Spleen: Unremarkable. Pancreas: Unremarkable. Gallbladder and bile ducts: Unremarkable. Kidneys: Unremarkable. No kidney or ureteral stones and no hydronephrosis seen. Adrenal glands: Unremarkable. GI tract: Unremarkable. The appendix is 11 mm in diameter with trace surrounding ground-glass inflammatory changes seen. Vascular: Unremarkable. Lymph nodes: Unremarkable. Miscellaneous: Unremarkable. No pneumoperitoneum is seen. No significant ascites is noted. Pelvic Organs: Unremarkable. Bones: Mild kyphosis near the thoracolumbar junction is endplate irregularities and small Schmorl`s node seen. This may be due to Scheuermann`s disease. IMPRESSION: 1. The appendix is 11 mm in diameter with trace surrounding ground-glass inflammatory changes seen. Findings are likely due to acute appendicitis. Dictated by Pradip Pope MD @ 04/20/2017 1:00:23 AM Dictated by: Pradip Pope MD @ 04/20/2017 01:03:42 (Electronic Signature) Report Signed by Proxy. M[facility] HOSPITALGogo
--- NOTE | 2017-04-21 17:11 | CR ---
EXAM DATE: 04/20/17 PATIENT'S AGE: 26 Patient: ALEX BURKS Facility: [place], [place] Site . Site : 1990 Study: XRay Chest [id number]/4/2017 10:38:48 PM Ordering Physician: Geni Chaudhary Final Report: INDICATION: CHEST PAIN TECHNIQUE: Chest 1 view COMPARISON: 12/06/2016 FINDINGS: Cardiovascular and mediastinum: Heart size and vasculature are normal in caliber and appearance. Mediastinum is within normal limits. Lungs and pleural space: No focal consolidation. No sign of pleural effusion. No pneumothorax. Bones and soft tissues: No significant findings. IMPRESSION: No acute cardiopulmonary disease. Dictated by Tom Bowen MD @ 04/20/2017 10:58:40 PM Dictated by: Tom Bowen MD @ 04/20/2017 22:58:57 (Electronic Signature) Report Signed by Proxy. MTD[facility]
== END 2017-04-21 10:00 | disposition home or self-care (01) ==
LOC: MW.ED 22:51 → MW.MS 04-20 01:09
PROVIDERS: ADMIT Surgery; ATTEND Surgery
DX: K35.80 Unspecified acute appendicitis (principal); Z98.890 Other specified postprocedural states
CPT/HCPCS: 36415; 44970; 71010; 74176; 80048; 80053; 81001; 83690; 84484; 85025; 88304; 93005; 96361; 96365; 96375; 99285; A9270; C1776; G0378; J1170; J1885; J2250; J2405; J2543; J3010; J7040; J7050; J7120; 00840; 99282; J2704

== ENCOUNTER 2019-04-13 11:03 | Day surgery (SDC) | payer BC ==
[~2019-04-13 11:03] MED LIST: Lactated Ringers 1,000 ML IV SCH; Sodium Chloride 0.9% 10 ML SDV IV PRN; Sodium Chloride 0.9% 10 ML Syringe FLUSH PRN; Sodium Chloride 0.9% 2.5 ML Syringe FLUSH PRN
--- NOTE | 2019-04-13 11:48 | PCM.PREANE ---
Preanesthetic Assessment - Anesthesia/Transfusion/Family Hx Anesthesia History: Prior Anesthesia Without Reaction Family History of Anesthesia Reaction: No Transfusion History: No Prior Transfusion(s) - Review of Systems General: No Symptoms Pulmonary: No Symptoms Cardiovascular: No Symptoms Neurological: No Symptoms Other: Reports: None - Physical Assessment NPO Status Date: 04/12/19 Height: 6 ft 3 in Weight: 131.088 kg ASA Class: 2 Mental Status: Alert & Oriented x3 Airway Class: Mallampati = 1 Dentition: Reports: Normal Dentition Lungs: Clear to Auscultation, Normal Respiratory Effort Cardiovascular: Regular Rate, Regular Rhythm - Allergies Allergies/Adverse Reactions: Allergies Allergy/AdvReac Type Severity Reaction Status Date / Time No Known Allergies Allergy Verified 04/11/19 11:55 - Blood Blood Available: No - Anesthesia Plan Pre-Op Medication Ordered: None - Acknowledgements Anesthesia Type Planned: General Anesthesia Pt an Appropriate Candidate for the Planned Anesthesia: Yes Alternatives and Risks of Anesthesia Discussed w Pt/Guardian: Yes Pt/Guardian Understands and Agrees with Anesthesia Plan: Yes PreAnesthesia Questionnaire - Past Health History Medical/Surgical History: Denies Medical/Surgical History HEENT History: Reports: Other (See Below) Other HEENT History: wears glasses/contacts Cardiovascular History: Reports: Afib Other Cardiovascular History: had 1 episode of A-Fib in 2016 that resolved without intervention Gastrointestinal History: Reports: Chronic Diarrhea Musculoskeletal History: Reports: Back Pain, Chronic Psychiatric History: Reports: ADD Endocrine/Metabolic History: Reports: Obesity/BMI 30+ - Infectious Disease History Infectious Disease History: Reports: Chicken Pox Other Infectious Disease History: childhood - Past Surgical History HEENT Surgical History: Reports: Tonsillectomy GI Surgical History: Reports: Appendectomy - SUBSTANCE USE Smoking Status *Q: Never Smoker Recreational Drug Use History: No - HOME MEDS Home Medications: Home Meds . [No Known Home Meds] 04/11/19 [History] - CURRENT (IN HOUSE) MEDS Current Meds: Current Medications Lactated Ringer's (Ringers, Lactated) 1,000 mls @ 125 mls/hr IV ASDIRECTED [facility] Sodium Chloride (Saline Flush) 10 ml FLUSH ASDIRECTED PRN PRN Reason: Keep Vein Open Sodium Chloride (Saline Flush) 2.5 ml FLUSH ASDIRECTED PRN PRN Reason: Keep Vein Open Sodium Chloride (Saline Flush) 10 ml FLUSH ASDIRECTED PRN PRN Reason: Keep Vein Open Sodium Chloride (Saline Flush) 2.5 ml FLUSH ASDIRECTED PRN PRN Reason: Keep Vein Open Sodium Chloride (Normal Saline) 10 ml IV ASDIRECTED PRN PRN Reason: IV Use
[2019-04-13] MEDS ORDERED: Lidocaine 2% 5 ML SDV ONE (12:07)
[2019-04-13] MEDS ORDERED: Propofol 200 MG/20 ML SDV ONE (12:08)
[2019-04-13] MEDS ORDERED: Midazolam 1 MG/ML 2 ML SDV ONE (12:17)
[2019-04-13] MEDS ORDERED: fentaNYL 100 MCG/2 ML SDV ONE (12:21)
--- NOTE | 2019-04-13 13:07 | PCM.POSTAN ---
POST ANESTHESIA ASSESSMENT - MENTAL STATUS Mental Status: Alert, Oriented - RESPIRATORY Respiratory Status: Respiratory Rate WNL, Airway Patent, O2 Saturation Stable - CARDIOVASCULAR CV Status: Pulse Rate WNL, Blood Pressure Stable - GASTROINTESTINAL GI Status: No Symptoms - POST OP HYDRATION Hydration Status: Adequate & Stable
--- NOTE | 2019-04-13 13:26 | PCM48HPAN ---
Post Anesthesia Note - EVALUATION WITHIN 48HRS OF ANESTHETIC Vital Signs in Normal Range: Yes Patient Participated in Evaluation: Yes Respiratory Function Stable: Yes Airway Patent: Yes Cardiovascular Function Stable: Yes Hydration Status Stable: Yes Pain Control Satisfactory: Yes Nausea and Vomiting Control Satisfactory: Yes Mental Status Recovered: Yes Resp Rate: 17
--- NOTE | 2019-04-13 13:37 | PCM.OPNOTE ---
- General Post-Op/Procedure Note Date of Surgery/Procedure: 04/13/19 Operative Procedure(s): Diagnostic EGD and colonoscopy Findings: Normal EGD and colonoscopy Pre Op Diagnosis: Abdominal pain, change in bowel habits Post-Op Diagnosis: same Anesthesia Technique: ZHANNA Primary Surgeon: Neena Arechiga Condition: Good Free Text/Narrative:: Intake & Output 04/12/19 04/13/19 04/13/19 22:59 06:59 14:59 Intake Total 1000 Balance 1000
[2019-04-13 13:50] VITALS: BP 118/56
--- NOTE | 2019-04-14 13:05 | OR ---
SURGEON: NEENA ARECHIGA MD DATE OF PROCEDURE: 04/13/2019 PREOPERATIVE DIAGNOSIS: Abdominal pain. POSTOPERATIVE DIAGNOSES: Normal esophagogastroduodenoscopy and colonoscopy. PRIMARY SURGEON: Endoscopist, Neena Arechiga MD. ANESTHESIA: MAC. INSTRUMENT USED: Olympus endoscope and colonoscope. EXTENT OF EXAM: To the second portion of duodenum, to the cecum. PREPARATION: Good. LIMITATIONS: None. INDICATION FOR EXAMINATION: The patient is a 28-year-old male who presents with abdominal pain. He has a family history of ulcerative colitis. A decision was made to proceed with diagnostic EGD and colonoscopy. I explained the procedures, expected perioperative course, and risks including bleeding, infection, or damage to surrounding structures including perforation. The patient verbalized understanding and wishes to proceed. PROCEDURE IN DETAIL: The patient was brought into the endoscopy suite and placed in a left lateral decubitus position. A time-out was completed verifying the patient's name, age, date of , allergies, and procedure to be performed. A bite block was placed in the patient's mouth. Monitored anesthesia care was induced and continuous oxygen was provided via nasal cannula throughout the procedure. After adequate sedation was achieved, a well lubricated endoscope was placed in the patient's mouth and advanced under direct visualization to the level of the second portion of the duodenum. This appeared normal and a photograph was taken. The scope was then straightened out and fully withdrawn while examining the color, texture, anatomy, and integrity of the mucosa of the upper GI tract. The duodenum appeared normal. The scope was brought into the stomach and a photograph was taken of the GE junction and the pylorus. Both appeared normal. Biopsies were taken of the gastric, antrum, body, and fundus, and sent for histologic review and H. pylori testing. There was no evidence of gross inflammation or ulceration in the stomach. The scope was brought into the distal esophagus and a photograph was taken of the GE junction from above. This appeared normal. The esophageal mucosa was free of pathology. The scope was removed and this portion of procedure was terminated. I then turned to the colonoscopic portion of the case. A digital rectal exam was performed. This exam was within normal limits. A well lubricated colonoscope was inserted into the rectum and advanced under direct visualization to the level of the cecum. The cecum was identified by both visual and anatomic landmarks. A photograph was taken of the cecal cap as well as with the scope retroflexed within the cecum. The scope was then fully withdrawn while examining the color, texture, anatomy, and integrity of the mucosa from the cecum to the anal canal. The terminal ileum was closely inspected and there was no evidence of any inflammation or ulceration. The remainder of the colonic mucosa appeared normal. The scope was then brought into the rectum and retroflexed to allow visualization of the anal canal opening. This appeared normal and a photograph was taken. The scope was then straightened out and fully withdrawn. The cecum to anus time was 9 minutes. The patient tolerated this procedure well and was transferred to the PACU in stable condition. ENDOSCOPIC DIAGNOSES: Normal esophagogastroduodenoscopy and colonoscopy. RECOMMENDATIONS: Follow up in the clinic in 2 weeks. The patient has a HIDA scan scheduled and we will follow up on the results of that as well as his biopsies at that time. NINI DE GUZMAN /[id number]
== END 2019-04-13 13:45 | disposition home or self-care (01) ==
LOC: MW.SDS 11:03
PROVIDERS: ATTEND Surgery
DX: R10.11 Right upper quadrant pain (principal); R10.31 Right lower quadrant pain; R19.4 Change in bowel habit; K31.89 Other diseases of stomach and duodenum; E66.9 Obesity, unspecified; Z68.36 Body mass index [BMI] 36.0-36.9, adult; Z83.79 Family history of other diseases of the digestive system
CPT/HCPCS: 00813; J2001; J2250; J2704; J3010; J7120

== ENCOUNTER 2021-02-13 09:02 | Emergency (ER) | payer BC, OTHER ==
--- NOTE | 2021-02-13 09:45 | EDM.PDOC ---
ED HPI GENERAL MEDICAL PROBLEM - General Chief Complaint: Fever Stated Complaint: COVID Time Seen by Provider: 02/13/21 09:24 Source of Information: Reports: Patient History Limitations: Reports: No Limitations - History of Present Illness INITIAL COMMENTS - FREE TEXT/NARRATIVE: Patient is a 30-year-old male who presents today for Covid symptoms. Patient was diagnosed with Covid few days ago recently started almost 7 or 8 days prior. Patient dates that he feels weak tired. Patient dates he checked his O2 at home and ranged from 92% 88%. Here patient room air is been 95% or greater. Patient was also concerned she was had A. fib after alcohol binge in the past but not any afibrillation symptoms and concerned he may have a blood clot. Patient currently has no chest pain, lower extremity swelling, recent travels or other complaints. - Related Data Allergies Allergy/AdvReac Type Severity Reaction Status Date / Time No Known Allergies Allergy Verified 02/13/21 09:31 Home Meds: Home Meds Ondansetron [Zofran ODT] 4 mg PO ASDIRECTED 02/13/21 [History] Past Medical History - Past Health History Medical/Surgical History: Denies Medical/Surgical History HEENT History: Reports: None Other HEENT History: tonsillitis Cardiovascular History: Reports: Afib Other Cardiovascular History: Pt had history of a fib earlier this year. Was hospitalized and evaluated by harness installer. Placed on xarelto and metoprolol. Had follow up visit and meds dc/d. States suspicion of alcohol/caffeine or stress triggered afib. Has been asymptomatic. Does have family history of early age cardiac disease. Risks of surgery and cardiac response discussed. Pt and advised to seek immediate medical attention in future if any symptoms occur. Pt and agree and wish to proceed. Gastrointestinal History: Reports: Chronic Diarrhea Musculoskeletal History: Reports: Back Pain, Chronic Psychiatric History: Reports: ADD Endocrine/Metabolic History: Reports: Obesity/BMI 30+ - Infectious Disease History Infectious Disease History: Reports: Chicken Pox Other Infectious Disease History: childhood - Past Surgical History HEENT Surgical History: Reports: Tonsillectomy Cardiovascular Surgical History: Reports: None GI Surgical History: Reports: Appendectomy Social & Family History - Family History Family Medical History: No Pertinent Family History Cardiac: Reports: Hypertension, Other (See Below) Other Cardiac Family History: heart disease OBGYN: Reports: Neurological: Reports: CVA Oncologic: Reports: Skin, Other (See Below) Other Oncologic Family History: sqaumous cell carcinoma - Tobacco Use Tobacco Use Status *Q: Never Tobacco User - Caffeine Use Caffeine Use: Reports: Coffee, Energy Drinks Other Caffeine Use: 1 daily Caffeine Use Comment: drinks coffee daily - Recreational Drug Use Recreational Drug Use: No ED ROS GENERAL - Review of Systems Review Of Systems: See Below Constitutional: Reports: No Symptoms HEENT: Reports: No Symptoms Respiratory: Reports: Shortness of Breath Cardiovascular: Reports: No Symptoms Endocrine: Reports: No Symptoms GI/Abdominal: Reports: No Symptoms : Reports: No Symptoms Musculoskeletal: Reports: No Symptoms Skin: Reports: No Symptoms Neurological: Reports: No Symptoms Psychiatric: Reports: No Symptoms Hematologic/Lymphatic: Reports: No Symptoms Immunologic: Reports: No Symptoms ED EXAM, GENERAL - Physical Exam Exam: See Below Exam Limited By: No Limitations General Appearance: Alert, WD/WN Respiratory/Chest: No Respiratory Distress, Lungs Clear, Normal Breath Sounds Cardiovascular: Normal Peripheral Pulses, Regular Rate, Rhythm GI/Abdominal: Normal Bowel Sounds, Soft, Non-Tender Neurological: Alert, Oriented, Normal Cognition, Normal Gait #1 Interpretation EKG Date: 02/13/21 Time: 09:47 Rhythm: NSR Rate (Beats/Min): 88 QT: Normal Course - Vital Signs Last Recorded V/S: Last Vital Signs Temp 99.5 F 02/13/21 09:27 Pulse 91 02/13/21 10:42 Resp 15 02/13/21 09:27 BP 114/58 L 02/13/21 10:42 Pulse Ox 94 L 02/13/21 10:42 - Orders/Labs/Meds Orders: Active Orders 24 hr Category Date Time Status EKG 12 Lead [EKG Documentation Completion] [RC] STAT Care 02/13/21 09:40 Active Labs: Laboratory Tests 02/13/21 02/13/21 Range/Units 09:57 09:57 WBC 3.46 L (4.0-11.0) K/uL RBC 5.06 (4.50-5.90) M/uL Hgb 15.2 (13.0-17.0) g/dL Hct 45.6 (38.0-50.0) % MCV 90.1 (80.0-98.0) fL MCH 30.0 (27.0-32.0) pg MCHC 33.3 (31.0-37.0) g/dL RDW Std Deviation 45.1 (28.0-62.0) fl RDW Coeff of Vikash 14 (11.0-15.0) % Plt Count 113 L (150-400) K/uL MPV 10.10 (7.40-12.00) fL Neut % (Auto) 65.2 (48.0-80.0) % Lymph % (Auto) 24.9 (16.0-40.0) % [place] % (Auto) 9.0 (0.0-15.0) % Eos % (Auto) 0.9 (0.0-7.0) % Baso % (Auto) 0.0 (0.0-1.5) % Neut # (Auto) 2.3 (1.4-5.7) K/uL Lymph # (Auto) 0.9 (0.6-2.4) K/uL [place] # (Auto) 0.3 (0.0-0.8) K/uL Eos # (Auto) 0.0 (0.0-0.7) K/uL Baso # (Auto) 0.0 (0.0-0.1) K/uL Nucleated RBC % 0.0 /100WBC Nucleated RBCs # 0 K/uL Sodium 140 (136-148) mmol/L Potassium 4.3 (3.5-5.1) mmol/L Chloride 105 (98-107) mmol/L Carbon Dioxide 28.5 (21.0-32.0) mmol/L BUN 9 (7.0-18.0) mg/dL Creatinine 1.2 (0.8-1.3) mg/dL Est Cr Clr Drug Dosing 110.51 mL/min Estimated GFR (MDRD) > 60.0 ml/min Glucose 103 (74-106) mg/dL Calcium 8.2 L (8.5-10.1) mg/dL Total Bilirubin 0.4 (0.2-1.0) mg/dL AST 21 (15-37) IU/L ALT 44 (14-63) IU/L Alkaline Phosphatase 88 (46-116) U/L Total Protein 7.4 (6.4-8.2) g/dL Albumin 3.8 (3.4-5.0) g/dL Globulin 3.6 (2.6-4.0) g/dL Albumin/Globulin Ratio 1.1 (0.9-1.6) Meds: Medications Discontinued Medications Generic Name Dose Route Start Last Admin Trade Name [place] PRN Reason Stop Dose Admin Iopamidol 75 ml 02/13/21 11:07 Iopamidol 755 Mg/Ml 500 Ml Multipack Bottle IVPUSH 02/13/21 11:08 ONETIME STA - Re-Assessments/Exams Free Text/Narrative Re-Assessment/Exam: 02/13/21 12:20 Patient PE study negative. Patient remained 96% on room air patient be discha rged home. Departure - Departure Time of Disposition: 12:21 Disposition: Home, Self-Care 01 Condition: Good Clinical Impression: Ongoing symptomatic disease due to COVID-19 virus - Discharge Information *PRESCRIPTION DRUG MONITORING PROGRAM REVIEWED*: Not Applicable *COPY OF PRESCRIPTION DRUG MONITORING REPORT IN PATIENT [place]: Not Applicable Instructions: COVID-19 Frequently Asked Questions Referrals: Genaro Roberts MD [Primary Care Provider] - Forms: ED Department Discharge Additional Instructions: The following information is given to patients seen in the emergency department who are being discharged to home. This information is to outline your options for follow-up care. We provide all patients seen in our emergency department with a follow-up referral. The need for follow-up, as well as the timing and circumstances, are variable depending upon the specifics of your emergency department visit. If you don't have a primary care physician on staff, we will provide you with a referral. We always advise you to contact your personal physician following an emergency department visit to inform them of the circumstance of the visit and for follow-up with them and/or the need for any referrals to a consulting specialist. The emergency department will also refer you to a specialist when appropriate. This referral assures that you have the opportunity for follow-up care with a specialist. All of these measure are taken in an effort to provide you with optimal care, which includes your follow-up. Under all circumstances we always encourage you to contact your private physician who remains a resource for coordinating your care. When calling for follow-up care, please make the office aware that this follow-up is from your recent emergency room visit. If for any reason you are refused follow-up, please contact the [facility] Emergency Department at and asked to speak to the emergency department charge nurse. Please follow up with your primary care physician. If you do not have a primary care physician, see below: [facility] [address] [place] [address] My [facility] [address] [place] [address] You were seen today for shortness of breath. We did a PE study did not show any clots of your lungs. Your symptoms are likely related to the Covid diagnosis. Please continue to get rest stay hydrated. Please follow-up with primary care physician as needed if you have any other concerning signs or symptoms please feel free to return to the ED. Sepsis Event Note (ED) - Evaluation Sepsis Screening Result: Possible Sepsis Risk - Focused Exam Vital Signs: Vital Signs Temp Pulse Resp BP Pulse Ox 02/13/21 10:42 91 114/58 L 94 L 02/13/21 09:27 99.5 F 91 15 143/73 H 94 L - My Orders Last 24 Hours: My Active Orders 02/13/21 09:40 EKG 12 Lead [EKG Documentation Completion] [RC] STAT - Assessment/Plan Last 24 Hours: My Active Orders 02/13/21 09:40 EKG 12 Lead [EKG Documentation Completion] [RC] STAT Plan: This is a 30-year-old male who presents today with cold-like symptoms. Patient has positive Covid few days ago. Patient is concerned about having a possible blood clot in his lungs. We spoke to patient states that he has no lower extremity swelling in the blood clots are a complication of Covid but does not have any signs of any clots or now. Patient does not have increased shortness of breath ambulation patient currently not tachycardic patient has no chest pain. We will obtain x-ray and EKG look for any right heart strain if normal patient will be discharged home.
[2021-02-13 10:31] LABS: BLOOD UREA NITROGEN,BUN 9 mg/dL (7.0-18.0); CARBON DIOXIDE,CO2 28.5 mmol/L (21.0-32.0); CHLORIDE,CL 105 mmol/L (98-107); GLUCOSE RANDOM 103 mg/dL (74-106); POTASSIUM,K 4.3 mmol/L (3.5-5.1); SODIUM,NA 140 mmol/L (136-148)
--- NOTE | 2021-02-13 10:58 | CR ---
INDICATION: COVID HYPOXIA TECHNIQUE: Chest 1 view. COMPARISON: 04/20/17 FINDINGS: Cardiovascular and mediastinum: Heart size and vasculature are normal in caliber and appearance. Mediastinum is within normal limits. Lungs and pleural space: Lungs are clear. No sign of infiltrate or mass. No sign of pleural effusion. No pneumothorax. Bones and soft tissues: No significant findings. IMPRESSION: Unremarkable chest. Dictated by: Lamin Michael MD @ 02/13/2021 10:56:27 (Electronically Signed)
[2021-02-13] MEDS ORDERED: Iopamidol 755 MG/ML 500 ML Multipack Bottle IVPUSH STA (11:07)
--- NOTE | 2021-02-13 12:09 | CT ---
INDICATION: Shortness of breath. TECHNIQUE: CT chest PE was acquired with 75 cc Isovue 370 IV contrast. COMPARISON: None. FINDINGS: Heart and vasculature: Contrast opacification of the pulmonary arterial tree is adequate. No sign of pulmonary embolism. Heart size is normal. Thoracic aorta and pulmonary artery are normal in caliber. Lungs and pleural: Airspace infiltrate is present in the medial right lower lobe. There are a few small inflammatory nodules also in the right lung. Left lung is clear. No pleural effusions, pleural thickening, or pneumothorax. Lymph nodes/mediastinum: No mediastinal, hilar, or axillary adenopathy. Thyroid gland is normal. Chest wall: No masses. Upper abdomen: Normal. Bones: Unremarkable for age. IMPRESSION: 1. No pulmonary embolism. 2. Right lower lobe airspace infiltrate and a few small inflammatory nodules in the right lung. Acute infectious or inflammatory process is suggested. Although possible, this is not a classic pattern for COVID pneumonitis. Please note that all CT scans at this facility use dose modulation, iterative reconstruction, and/or weight-based dosing when appropriate to reduce radiation dose to as low as reasonably achievable. Dictated by Ray Fairbanks MD @ 02/13/2021 12:06:[address] Ray Fairbanks @ Feb 13 2021 12:06PM
[2021-02-13 12:30] VITALS: BP 127/68; PULSE 81
== END 2021-02-13 12:30 | disposition home or self-care (01) ==
LOC: MW.ED 09:02
DX: U07.1 COVID-19 (principal); I48.91 Unspecified atrial fibrillation; E66.9 Obesity, unspecified; Z68.34 Body mass index [BMI] 34.0-34.9, adult; Z79.01 Long term (current) use of anticoagulants; Z79.899 Other long term (current) drug therapy
CPT/HCPCS: 36415; 71045; 71045-26; 71275; 71275-26; 80053; 85025; 93005; 99283; 99284-25

== ENCOUNTER 2022-06-17 12:27 | Emergency (ER) | payer OTHER ==
[2022-06-17 12:38] VITALS: BP 124/72; PULSE 83
[2022-06-17] MEDS ORDERED: Aspirin 81 MG Tab.Chew PO ONE (12:50)
[2022-06-17 13:41] LABS: CARBON DIOXIDE,CO2 26.4 mmol/L (21.0-32.0); POTASSIUM,K 3.9 mmol/L (3.5-5.1)
== END 2022-06-17 15:03 | disposition home or self-care (01) ==
LOC: MW.ED 12:27
DX: R07.89 Other chest pain (principal); U07.1 COVID-19; I48.91 Unspecified atrial fibrillation; I10 Essential (primary) hypertension; E66.9 Obesity, unspecified; Z68.37 Body mass index [BMI] 37.0-37.9, adult
CPT/HCPCS: 36415; 71045; 80053; 84484; 85025; 85379; 85610; 85730; 87635; 93005; 99285; A9270; 93010; 99284; U0002